=== PATIENT | female | born 1950 | race Caucasian/White ===

== ENCOUNTER → 2017-05-02 | Outpatient (CLI) | payer BC, OTHER | LOC: RAD 14:05 | DX: Z12.31 Encounter for screening mammogram for malignant neoplasm of breast (principal); M47.896 Other spondylosis, lumbar region; M16.11 Unilateral primary osteoarthritis, right hip ==

== ENCOUNTER → 2019-05-16 | Outpatient (CLI) | payer BC, OTHER | LOC: RAD 03:58 | DX: Z12.31 Encounter for screening mammogram for malignant neoplasm of breast (principal) ==

== ENCOUNTER → 2021-04-16 | Outpatient (CLI) | payer BC | LOC: BC 11:31 | PROVIDERS: ATTEND Nurse Practitioner | DX: Z12.31 Encounter for screening mammogram for malignant neoplasm of breast (principal) ==

== ENCOUNTER → 2021-05-21 | Outpatient (CLI) | payer BC | LOC: SJCVCIMAG 08:13 | PROVIDERS: ATTEND Internal Medicine | DX: I49.3 Ventricular premature depolarization (principal); I05.9 Rheumatic mitral valve disease, unspecified; R94.31 Abnormal electrocardiogram [ECG] [EKG]; R00.2 Palpitations; R07.89 Other chest pain; I49.8 Other specified cardiac arrhythmias ==

== ENCOUNTER → 2021-12-08 | Outpatient (CLI) | payer OTHER, BC ==
[~2021-12-08] MED LIST: ALEVE220 M1 PO; BENADRYL25 MG PO; DILTIAZEM 24HR300 M2 PO; IBUPROFEN200 M1 PO; METAMUCIL1 EAC1 PO; NEXIUM 24HR20 M1 PO; PLAQUENIL200 MG PO; PROSCAR 5MG TABL5 M1 PO; TYLENOL325 M1 PO; VITAMIN D21250 MCG PO; XALATAN2.5 M1 OPHTHALMIC
== END ==
LOC: LAB 09:03
PROVIDERS: ATTEND Student in an Organized Health Care Education/Training Program
DX: Z01.812 Encounter for preprocedural laboratory examination (principal); Z20.822 Contact with and (suspected) exposure to COVID-19

== ENCOUNTER → 2021-12-10 | Outpatient (CLI) | payer BC ==
[~2021-12-10] VITALS: Ht 167.6 cm; Wt 141.5 kg
--- NOTE | 2021-12-15 10:45 | P ---
[facility] [place] [address] PROCEDURE REPORT Name: DERRICK KILLIAN Room #: [facility] [id number] Admission: 12/10/21 Attend Phys: Newton Gomez Discharge: Date of : 50 Report #: [id number] THIS REPORT FOR: cc: Zeinab Pineda MD, Nora P. MD McElhinney, Christian C. MD ~ cc: Zeinab Pineda MD DATE OF SERVICE: 12/10/2021 PROCEDURE PERFORMED: Colonoscopy. HISTORY OF PRESENT ILLNESS: The patient is a 71-year-old female with intermittent bright red blood per rectum. She does have a history of hemorrhoids. She also has a history of colon polyps. Last colonoscopy was 4 years ago. No family history of colon cancer. DESCRIPTION OF PROCEDURE: The risks and benefits of the procedure were explained to the patient, those risks including but not limited to bleeding, perforation and the risk of sedation. She understood these risks and gave informed consent. Sedation was given using propofol per anesthesia. Next, a digital rectal exam was initially performed, which showed small external hemorrhoids, otherwise normal. Next, using a standard Olympus colonoscope, the scope was placed in the patient's anus and advanced under direct vision to the cecum. The overall prep was excellent. The cecum and ileocecal valve were normal in appearance. A few scattered diverticula were noted in the ascending colon, otherwise normal. The transverse colon was normal. Diverticula were also noted in the descending and sigmoid colon. No evidence of inflammation, otherwise normal. The rectal mucosa was normal. On retroflexion, no abnormalities were noted. Close examination of the anal canal again showed external hemorrhoids. No evidence of bleeding. No anal fissure was noted. The scope was then withdrawn and the procedure terminated. The patient tolerated the procedure well. IMPRESSION: 1. Diverticulosis. 2. External hemorrhoids, likely source of intermittent bright red blood per rectum. 3. Otherwise, normal colonoscopy. RECOMMENDATIONS: 1. High-fiber diet. 2. Analpram on a p.r.n. basis. 3. Repeat colonoscopy in 10 years. [facility] [address] [place] [address] PROCEDURE REPORT Name: CONSTANTINDERRICK Room #: [facility] HILARIO GabrielEna#: [id number] Admission: 12/10/21 Attend Phys: Newton Gomez Discharge: Date of : 50 Report #: [id number] Thank you for allowing me to participate in her care. <ELECTRONICALLY SIGNED> By: Newton Hill MD 12/15/21 1045 [id number] Newton Hill MD /nt
== END | disposition home or self-care (01) ==
LOC: GI
PROVIDERS: ATTEND Specialist
DX: K62.5 Hemorrhage of anus and rectum (principal); K57.30 Diverticulosis of large intestine without perforation or abscess without bleeding; K64.4 Residual hemorrhoidal skin tags; I10 Essential (primary) hypertension; K21.9 Gastro-esophageal reflux disease without esophagitis; Z98.890 Other specified postprocedural states; Z86.010 Personal history of colon polyps; Z79.899 Other long term (current) drug therapy; Z85.42 Personal history of malignant neoplasm of other parts of uterus; Z91.041 Radiographic dye allergy status
CPT/HCPCS: 62110; 62900